=== PATIENT | female | born 1955 | race African-American/Black ===

== ENCOUNTER 2017-03-17 06:53 | Day surgery (SDC) | payer BC ==
[2017-03-17] MEDS ORDERED: TETRACAINE 0.5% OPHTH 1 DOSE AFFEYE ONE ×3 (07:00→09:00)
[2017-03-17] MEDS ORDERED: VIGAMOX 0.5% OPHTH 1 DOSE AFFEYE ONE ×5 (07:05→09:28)
[2017-03-17] MEDS ORDERED: PROLENSA OPHTH 1 DOSE AFFEYE ONE (07:16)
[2017-03-17] MEDS ORDERED: NS 500 ML IV 500 ML IV ONE (07:17)
[2017-03-17] MEDS ORDERED: ALPHAGAN-P OPHTH 1 DOSE AFFEYE ONE (07:17)
[2017-03-17] MEDS ORDERED: AK-DILATE 2.5% OPHTH 1 DOSE OP ONE ×3 (07:18→07:20)
[2017-03-17] MEDS ORDERED: CYCLOGYL 1% OPHTH 1 DOSE OP ONE ×3 (07:18→07:20)
[2017-03-17] MEDS ORDERED: MYDRIACIL OPHTH 1 DOSE AFFEYE ONE ×3 (07:18→07:20)
[2017-03-17] MEDS ORDERED: DUOVISC IO ONE ×2 (08:48→09:18)
[2017-03-17] MEDS ORDERED: XYLOCAINE-MPF 1% IJ ONE ×2 (08:48→09:18)
[2017-03-17] MEDS ORDERED: ADRENALINE CHL INJ IJ ONE ×2 (08:48→09:18)
[2017-03-17] MEDS ORDERED: BETADINE OPHTH SOLN 5% EACHEYE ONE ×2 (08:48→09:00)
[2017-03-17] MEDS ORDERED: BSS OPHTH (PLAIN) 500 ML with VANCOMYCIN HCL 500 MG VIAL 25 MG, ADRENALINE CHL INJ 1 MG IR ONE ×6 (08:56)
[2017-03-17 10:18] VITALS: BP 167/83
== END 2017-03-17 09:50 | disposition home or self-care (01) ==
LOC: SURG1 06:53
PROVIDERS: ATTEND Ophthalmology
PROC: 08RJ3JZ Replacement of Right Lens with Synthetic Substitute, Percutaneous Approach (ICD-10-PCS; principal; 2017-03-17 07:30)
PROC: 08DJ3ZZ Extraction of Right Lens, Percutaneous Approach (ICD-10-PCS; principal; 2017-03-17 07:30)
DX: H25.11 Age-related nuclear cataract, right eye (principal)
CPT/HCPCS: A4217; J0170; J3370

== ENCOUNTER 2017-03-31 08:01 | Day surgery (SDC) | payer BC ==
[~2017-03-31 08:01] MED LIST: TETRACAINE 0.5% OPHTH 1 DOSE AFFEYE ONE; VIGAMOX 0.5% OPHTH 1 DOSE AFFEYE ONE
[2017-03-31] MEDS ORDERED: VIGAMOX 0.5% OPHTH 1 DOSE AFFEYE ONE ×4 (08:06→11:14)
[2017-03-31] MEDS ORDERED: NS 500 ML IV 500 ML IV ONE (08:10)
[2017-03-31] MEDS ORDERED: PROLENSA OPHTH 1 DOSE AFFEYE ONE (08:12)
[2017-03-31] MEDS ORDERED: ALPHAGAN-P OPHTH 1 DOSE AFFEYE ONE (08:13)
[2017-03-31] MEDS ORDERED: AK-DILATE 2.5% OPHTH 1 DOSE OP ONE ×4 (08:14→08:17)
[2017-03-31] MEDS ORDERED: MYDRIACIL OPHTH 1 DOSE AFFEYE ONE ×4 (08:14→08:17)
[2017-03-31] MEDS ORDERED: CYCLOGYL 1% OPHTH 1 DOSE OP ONE ×4 (08:14→08:17)
[2017-03-31] MEDS ORDERED: TETRACAINE 0.5% OPHTH 1 DOSE AFFEYE ONE (10:46)
[2017-03-31] MEDS ORDERED: BETADINE OPHTH SOLN 5% EACHEYE ONE (10:47)
[2017-03-31] MEDS ORDERED: BSS OPHTH (PLAIN) 500 ML with VANCOMYCIN HCL 500 MG VIAL 25 MG, ADRENALINE CHL INJ 1 MG IR ONE ×3 (10:58)
[2017-03-31] MEDS ORDERED: DUOVISC IO ONE (10:58)
[2017-03-31] MEDS ORDERED: XYLOCAINE-MPF 1% IJ ONE (10:58)
[2017-03-31] MEDS ORDERED: ADRENALINE CHL INJ IJ ONE (10:58)
[2017-03-31 15:11] VITALS: BP 172/84
== END 2017-03-31 11:40 | disposition home or self-care (01) ==
LOC: SURG1 08:01
PROVIDERS: ATTEND Ophthalmology
PROC: 08DK3ZZ Extraction of Left Lens, Percutaneous Approach (ICD-10-PCS; principal; 2017-03-31 13:30)
PROC: 08RK3JZ Replacement of Left Lens with Synthetic Substitute, Percutaneous Approach (ICD-10-PCS; principal; 2017-03-31 13:30)
DX: H25.12 Age-related nuclear cataract, left eye (principal)
CPT/HCPCS: A4217; J0170; J3370

== ENCOUNTER → 2017-05-18 | Outpatient (CLI) | payer BC ==
--- NOTE | 2017-05-18 10:17 | RAD ---
HISTORY: Cervicalgia. Study: Three views of the cervical spine. Comparison: None. Findings: Normal cervical lordosis without obvious fracture or listhesis. Multilevel mild disc space narrowing with associated anterior disc osteophyte complexes, facet arthrosis, and uncovertebral hypertrophy. Congenital spinal canal narrowing. The dens is intact. The prevertebral soft tissues and lung apice s appear normal. IMPRESSION: Chronic findings as above. Reported By:
--- NOTE | 2017-05-18 12:12 | MG ---
HISTORY: SCREENING Comparison: May 07, 2015 and May 08, 2016 FINDINGS: Bilateral CC and MLO projections of the right and left breast were obtained. Scattered fibroglandul ar tissue is seen to be present without significant interval change. No suspicious architectural di stortion, mass or clustered microcalcifications can be observed to suggest malignancy. No skin thic kening or nipple retraction is appreciated. No pathological lymphadenopathy can be identified. Griffin ign-appearing calcifications are noted within the right and left breast. IMPRESSION: NO RADIOGRAPHIC EVIDENCE OF MALIGNANCY. ACR CATEGORY 2 - benign findings. FOLLOW-UP EXAM 1 YEAR. Diagnostic CAD was utilized and reviewed. * 0 (ZERO) - ASSESSMENT INCOMPLETE; ADDITIONAL IMAGING IS NEEDED. * 1/1 (ONE) - NEGATIVE. * 2/II (TWO) - BENIGN FINDINGS. * 3/III (THREE) - PROBABLY BENIGN FINDING; SHORT INTERVAL FOLLOW-UP SUGGESTED. * 4/IV (FOUR) - SUSPICIOUS ABNORMALITY; BIOPSY SHOULD BE CONSIDERED. * 5/V (FIVE) - HIGHLY SUSPICIOUS OF MALIGNANCY; BIOPSY SHOULD BE PERFORMED. A NEGATIVE X-RAY REPORT SHOULD NOT DELAY BIOPSY IF A DOMINANT OR CLINICALLY SUSPICIOUS MASS IS PRESENT; 4 TO 8 PERCENT OF CANCERS ARE NOT IDENTIFIED BY X-RAY. A NEG ATIVE REPORT MAY REINFORCE THE CLINICAL IMPRESSION. ADENOSIS AND DENSE BREASTS MAY OBSCURE AN UNDER LYING NEOPLASM. Reported By:
== END ==
LOC: RAD 08:28
PROVIDERS: ATTEND Nurse Practitioner Family
DX: Z12.31 Encounter for screening mammogram for malignant neoplasm of breast (principal); M54.2 Cervicalgia
CPT/HCPCS: 72040; 77067

== ENCOUNTER 2019-02-26 05:55 | Inpatient (IN) ==
[2019-02-26 06:14] VITALS: BMI 29.8
--- NOTE | 2019-02-26 06:15 | DR.WEAKNES ---
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 States she took her Lisinopril for her blood pressure and her diabetic medicines. She denies headache, dizziness, cold, cough, fever or chills. States she is not weak but has problems with her balance when she walks. States she has not had any falls and she has not been dropping things. She is a patient of Tricia Bailey. She denies alcohol or tobacco usage. She denies dysuria, hemauria, diarrhea or constipation. States her blood pressure and sugar has been elevated today. She denies any previous strokes. Chief Complaint:: STATES THAT LAST PM AROUND 2200 SHE WAS SITTING IN THE FRONT ROOM WHEN SHE STARTED FEELING NUMB ON HER RIGHT SIDE FROM HER FACE DOWN TO HER FEET. STATES SHE JUST GOT FINISHED EATING PORK SKINS. Self Treatment fo Chief Complaint: LISINOPRIL 40MG. GLYBURIDE 2.5MG - Reviewed Nurses Notes Reviewed: Yes - Source History Provided: Patient, Significant Other - Mode of Arrival Mode of Arrival: Wheelchair - Timing Onset of Chief Complaint: 02/26/19 Since onset, symptoms are:: Unchanged Symptom Onset: Known Onset of Symptoms Start Date: 02/26/19 Onset of Symptoms Start Time: 22:00 - Duration Duration: Constant Duration: Hours - Context Onset: Spontaneous, At rest Symptoms: Numbness, Difficulty walking History of: None Stroke Symptoms: Numbness of limbs - Location Weakness Location: Right, Arm, Leg - Associated Signs and Symptoms Associated Signs and Symptoms: None PMH - PMH Past Medical History: Yes Past Medical History: Arthritis, Diabetes, GERD, Hypertension Past Surgical History: No Surgical History: No History - Family History History of Family Medical Conditions: Yes Family Medical History: Diabetes Mellitus, Cancer, Coronary Artery Disease, Hypertension - Social History Does any household member use tobacco: No Alcohol Use: None Do you use any recreational Drugs:: No Lives With: Spouse Lives Where: Home - infectious screening In the last 2 months have you had wt loss of >10#?: NO Have you had fever, night sweats or hemotysis?: No Have you traveled outside the country in the last 6 months?: No Isolation: Standard ROS - Review of Systems Constitutional: No Symptoms Reported. negative: See HPI, Chills, Diaphoresis, Fever, Malaise, Weakness, Irritable, Fatigue, Loss of Appetite, Other Eyes: No Symptoms Reported. negative: See HPI, Eye Pain, Blurred Vision, Tearing, Discharge, Photophobia, Diplopia, Other ENTM: No Symptoms Reported Respiratoy: No Symptoms Reported. negative: See HPI, Productive Cough, Non- Productive Cough, Moist Cough, Dry Cough, Hacking Cough, Barking Cough, Brassy Cough, Orthopnea, Short of Breath, Stridor, Wheezing, Hemoptysis, Other Cardiovascular: No Symptoms Reported. negative: See HPI, Chest Pain, Edema, Palpitations, Syncope, Cyanosis, Skin Mottling, Other Gastrointestinal/Abdominal: No Symptoms Reported Genitourinary: No Symptoms Reported Neurological: No Symptoms Reported, Numbness, Problems Walking Musculoskeletal: No Symptoms Reported Integumentary: No Symptoms Reported Hematologic/Lymphatic: No Symptoms Reported Endocrine: No Symptoms Reported Psychiatric: No Symptoms Reported. negative: See HPI, Anxiety, Depression, Hallucinations, Excessive crying, Suicidal, Other PE - General Limitations: No Limitations General Appearance: Alert, In Distress (mild) - Head Head Exam: Normal Inspection, Atraumatic, Normocephalic Head Exam Physical: negative: Laceration, Abrasion, Contusion, Hematoma, Raccoon Eyes, Salcedo's Sign, Tenderness of Temporal Artery, CSF Rhinorrhea, CSF Otorrhea, Other - Eyes Eye exam: Normal Appearance, PERRL, EOMI. negative: Scleral Icterus, Conjunctival Injection, Nystagmus, Miosis, Mydrasis, Periorbital Swelling, Periorbital Tenderness, Other Eyelids: Normal Inspection: Bilateral Pupils: Regular, Round: Bilateral, Reactive: Bilateral Sclera/Conjunctival: Normal Inspection: Bilateral Anterior Chamber: Normal Inspection: Bilateral - ENT ENT Exam: Normal Exam, Normal Oropharynx, Normal External Ear Exam, Mucous Membranes Moist, TM's Normal Bilaterally Mouth Exam: Normal Inspection Throat Exam: Normal Inspection - Neck Neck Exam: Normal Inspection, Full ROM, Trachea Midline - Chest Chest Inspection: Normal Inspection - Respiratory Respiratory Exam: Normal Lung Sounds Bilat Respiratory Exam: Bilateral Clear to Auscultation - Cardiovascular Cardiovascular Exam: Regular Rate, Normal Rhythm, Normal Heart Sounds - Abdominal Exam Abdominal Exam: Normal Inspection, Normal Bowel Sounds, Soft. negative: Distention, Tenderness, Guarding, Rebound, Rigidity, Dimnished Bowel Sounds, Hyperactive Bowel Sounds, Hypoactive Bowel Sounds, Organomegaly, Trauma, Incision, Ascites, Mass, Bruit, Pulsatile Mass, Hernia, Other Abdominal Tenderness: negative: RUQ, RLQ, LUQ, LLQ, Epigastrium, Suprapubic, Diffuse, Mild, Moderate, Severe, Other - Extremities Extremities Exam: Normal Inspection, Full ROM, Normal Capillary Refill. negative: Tenderness, Edema, Joint Swelling, Calf Tenderness, Other - Back Back Exam: Normal Inspection, Full ROM. negative: Tenderness, (R) CVA Tenderness, (L) CVA Tenderness, Muscle Spasm, Paraspinal Tenderness, Vertebral Tenderness, Rashes, (R) Sciatic Notch Tenderness, (L) Sciatic Notch Tendern, (R) Straight Leg Raise, (L) Straight Leg Raise, Other - Neurologic Neurological Exam: Alert, Oriented X3, CN II-XII Intact, Reflexes Normal. negative: Normal Gait (gait not tested) Patient Oriented To: Person, Place, Time Speech: Fluid Speech Cranial Nerve Exam: EOM Function (II, III, IV, ): Normal, Facial Sensation (V): Normal, Facial Palsy (VII): Normal, Gag reflex (XI): Normal, Spinal Accessory Function (XI): Normal, Tongue Deviation: Right Abnormal (tongue deviates slightly to the right) Cerebellar Function: Finger to Nose: Normal Motor Strength - LUE: 5/5 Motor Strength - RUE: 3/5 Motor Strength - LLE: 5/5 Motor Strength - RLE: 3/5 Upper Motor Neuron Exam: Babinski Sign: Normal Sensory Exam Upper Extremity: Light Touch: Normal, 2 Point Discrimination: Normal Sensory Exam Lower Extremity: Light Touch: Normal, 2 Point Discrimination: Normal DTR: bicep (L): 2+, bicep (R): 2+, Patellar (L): 2+, patellar (R): 2+, tricep (L): 1+, tricep (R): 1+ - Psychiatric Psychiatric Exam: Normal Affect, Normal Mood. negative: Depressed, Agitated, Anxious, Flat Affect, Manic, Homicidal Ideation, Suicidal Ideation, Other - Skin Skin Exam: Warm, Dry, Intact, Normal Color - Vital Signs Vitals: Temperature 98.4 F Pulse Rate [Apical] 61 Pulse Rate 63 Respiratory Rate 19 Blood Pressure [Left Arm] 209/96 Blood Pressure 216/99 O2 Sat by Pulse Oximetry 99 Course - Reevaluation 1st: Improved - Consultation Called: 08:17 Call Returned: 08:17 (Dr. Hardwick to admit) - Education/Counseling Education/Counseling: Patient, Family Educated On: Treatment, Diagnosis, Needs for Follow Up ROR - Labs Reviewed Laboratory Results Reviewed?: Yes Result Diagrams: 02/26/19 06:09 02/26/19 06:09 - XRAY XRAY Interpreted by: Radiologist (CT head: No acuate intracranial process can be identified) - EKG Rate: 58 [place]: Normal Rhythm: NSR Block: None Hypertrophy: None ST: Old, Ant, Infarct - Labs Reviewed Laboratory: WBC 6.7 X10^3/uL (3.6-10.0) 02/26/19 06:09 RBC 5.13 X10^6/uL (3.5-5.4) 02/26/19 06:09 Hgb 13.9 g/dL (12.0-16.0) 02/26/19 06:09 Hct 41.6 % (36.0-47.0) 02/26/19 06:09 MCV 81.0 fL (80.0-100.0) 02/26/19 06:09 MCH 27.1 pg (27.0-34.0) 02/26/19 06:09 MCHC 33.5 g/dL (33.0-35.0) 02/26/19 06:09 RDW 15.0 % (11.6-16.5) 02/26/19 06:09 Plt Count 306 X10^3/uL (150.0-450.0) 02/26/19 06:09 MPV 8.2 fL (7.4-11.0) 02/26/19 06:09 Neut % (Auto) 59.0 % (42.0-75.0) 02/26/19 06:09 Lymph % (Auto) 32.3 % (21.0-51.0) 02/26/19 06:09 [place] % (Auto) 6.2 % (0.0-13.0) 02/26/19 06:09 Eos % (Auto) 1.7 % (0.9-2.9) 02/26/19 06:09 Baso % (Auto) 0.8 % (0.2-1.0) 02/26/19 06:09 Neut # (Auto) 3.9 x10^3/uL (2.2-4.8) 02/26/19 06:09 Lymph # (Auto) 2.2 X10^3/uL (1.3-2.9) 02/26/19 06:09 [place] # (Auto) 0.4 x10^3/uL (0.3-0.8) 02/26/19 06:09 Eos # (Auto) 0.1 x10^3/uL (0.0-0.2) 02/26/19 06:09 Baso # (Auto) 0.1 X10^3/uL (0.0-0.1) 02/26/19 06:09 Absolute Nucleated RBC 0.1 /100WBC 02/26/19 06:09 INR Target Range - 02/26/19 06:09 INR 0.92 (0.8-1.3) 02/26/19 06:09 APTT 27.0 SECONDS (22.9-36.5) 02/26/19 06:09 PTT Comment - 02/26/19 06:09 Sodium 141 mmol/L (136-145) 02/26/19 06:09 Corrected Sodium 144 mmol/L (136-145) 02/26/19 06:09 Potassium 3.6 mmol/L (3.5-5.1) 02/26/19 06:09 Chloride 104 mmol/L (98-107) 02/26/19 06:09 Carbon Dioxide 27.3 mmol/L (21-32) 02/26/19 06:09 BUN 20 mg/dL (7-18) H 02/26/19 06:09 Creatinine 0.91 mg/dL (0.55-1.02) 02/26/19 06:09 Est GFR (MDRD) Af Amer > 60 (>60) 02/26/19 06:09 Est GFR (MDRD) Non-Af > 60 (>60) 02/26/19 06:09 Glucose 211 mg/dL (65-99) H 02/26/19 06:09 Calcium 9.3 mg/dL (8.5-10.1) 02/26/19 06:09 Corrected Calcium 9.9 mg/dL (8.5-10.1) 02/26/19 06:09 Magnesium 1.9 mg/dL (1.7-2.9) 02/26/19 06:09 Total Bilirubin 0.20 mg/dL (0.2-1.0) 02/26/19 06:09 AST 14 Units/L (15-37) L 02/26/19 06:09 ALT 17 Units/L (12-78) 02/26/19 06:09 Alkaline Phosphatase 79 Units/L (46-116) 02/26/19 06:09 Creatine Kinase 83 Units/L (26-192) 02/26/19 06:09 CK-MB (CK-2) 1.2 ng/mL (0-4.0) 02/26/19 06:09 CK/CKMB % Calc 1.5 % (<4) 02/26/19 06:09 Troponin I 0.02 ng/mL (0-1.5) 02/26/19 06:09 Total Protein 8.1 g/dL (6.4-8.2) 02/26/19 06:09 Albumin 3.3 g/dL (3.4-5.0) L 02/26/19 06:09 Globulin 4.8 g/dL (2.5-4.5) H 02/26/19 06:09 Albumin/Globulin Ratio 0.7 Ratio (1.1-2.1) L 02/26/19 06:09 Specimen Type Clean catch urine 02/26/19 06:45 Urine Color Yellow (YELLOW) 02/26/19 06:45 Urine Appearance Cloudy (CLEAR) 02/26/19 06:45 Urine pH 7.0 (5.0 - 8.0) 02/26/19 06:45 Ur Specific [place] 1.010 (1.000-1.030) 02/26/19 06:45 Urine Protein 1+ (NEGATIVE) 02/26/19 06:45 Urine Glucose (UA) 3+ (NEGATIVE) 02/26/19 06:45 Urine Ketones 1+ (NEGATIVE) 02/26/19 06:45 Urine Occult Blood 1+ (NEGATIVE) 02/26/19 06:45 Urine Nitrite Negative (NEGATIVE) 02/26/19 06:45 Urine Bilirubin Negative (NEGATIVE) 02/26/19 06:45 Urine Urobilinogen Normal (NORMAL) 02/26/19 06:45 Ur Leukocyte Esterase 2+ (NEGATIVE) 02/26/19 06:45 Urine RBC 0-2 /HPF (NONE SEEN) 02/26/19 06:45 Urine WBC 0-2 /HPF (NONE SEEN) 02/26/19 06:45 Ur Squamous Epith Cells Moderate /HPF (NEGATIVE) 02/26/19 06:45 Amorphous Sediment 3+ /HPF (NEGATIVE) 02/26/19 06:45 Urine Bacteria Negative /HPF (NEGATIVE) 02/26/19 06:45 Ur Culture Indicated? No/not indicated 02/26/19 06:45 - Diagnosis Discharge Problem: Acute alteration in mental status, Paresthesia of right upper and lower extremity, Accelerated hypertension Diabetes mellitus Qualifiers: Diabetes mellitus type: type 2 - Discharge Plan Disposition: ADMITTED INPATIENT Condition: Stable - Follow ups/Referrals Follow ups/Referrals: BEN HARDWICK [Primary Care Provider] - 3 days - Instructions
[2019-02-26] MEDS ORDERED: CATAPRES TAB 0.2 MG PO ONE (06:17)
[2019-02-26] MEDS ORDERED: CATAPRES TAB 0.2 MG ONE (06:18)
[2019-02-26 06:38] LABS: BASOPHILS # (AUTO) 0.1 X10^3/uL (0.0-0.1); BASOPHILS % (AUTO) 0.8 % (0.2-1.0); EOSINOPHILS # (AUTO) 0.1 x10^3/uL (0.0-0.2); EOSINOPHILS % (AUTO) 1.7 % (0.9-2.9); HEMATOCRIT 41.6 % (36.0-47.0); HEMOGLOBIN 13.9 g/dL (12.0-16.0); LYMPHOCYTES # (AUTO) 2.2 X10^3/uL (1.3-2.9); LYMPHOCYTES % (AUTO) 32.3 % (21.0-51.0); MEAN CORPUSCULAR HEMOGLOBIN 27.1 pg (27.0-34.0); MEAN CORPUSCULAR HGB CONC 33.5 g/dL (33.0-35.0); MEAN PLATELET VOLUME 8.2 fL (7.4-11.0); MONOCYTES # (AUTO) 0.4 x10^3/uL (0.3-0.8); MONOCYTES % (AUTO) 6.2 % (0.0-13.0); NEUTROPHILS # (AUTO) 3.9 x10^3/uL (2.2-4.8); PLATELET COUNT 306 X10^3/uL (150.0-450.0); RED BLOOD COUNT 5.13 X10^6/uL (3.5-5.4); WHITE BLOOD COUNT 6.7 X10^3/uL (3.6-10.0)
[2019-02-26 06:48] LABS: BLOOD UREA NITROGEN 20 mg/dL (7-18); CALCIUM 9.3 mg/dL (8.5-10.1); CARBON DIOXIDE 27.3 mmol/L (21-32); CHLORIDE 104 mmol/L (98-107); COR NA(FOR HYPERGLY) 144 mmol/L (136-145); CREATININE 0.91 mg/dL (0.55-1.02); SODIUM 141 mmol/L (136-145); TROPONIN I 0.02 ng/mL (0-1.5); eGFR NON BLACK RACES > 60 (>60)
[2019-02-26 06:52] LABS: ALANINE AMINOTRANSFERASE 17 Units/L (12-78); ALBUMIN 3.3 g/dL (3.4-5.0); ALKALINE PHOSPHATASE 79 Units/L (46-116); CKMB % 1.5 % (<4); COR CA(FOR HYPOALB) 9.9 mg/dL (8.5-10.1); CREATINE KINASE 83 Units/L (26-192); CREATINE KINASE MB 1.2 ng/mL (0-4.0); MAGNESIUM 1.9 mg/dL (1.7-2.9); TOTAL PROTEIN 8.1 g/dL (6.4-8.2)
[2019-02-26 06:56] LABS: ASPARTATE AMINO TRANSFERASE 14 Units/L (15-37)
--- NOTE | 2019-02-26 07:04 | CT ---
HISTORY: Right arm and leg weakness Study: CT brain without contrast Comparison: None Technique: Multiple axial images of the brain were obtained from the skull base to the vertex without administration of IV contrast. Findings: No acute intraparenchymal hemorrhage or mass can be identified. No extra-axial fluid collections are seen. No alteration in the attenuation of the brain parenchyma can be identified to suggest acute or subacute ischemic change. The ventricular system is symmetric and nondilated. The extracranial structures are grossly unremarkable. IMPRESSION: 1. No acute intracranial process can be identified. Reported By:
[2019-02-26 07:05] LABS: BILIRUBIN,URINE NEGATIVE (NEGATIVE); BLOOD/HEMOGLOBIN,URINE 1+ (NEGATIVE); GLUCOSE, URINE 3+ (NEGATIVE); KETONES,URINE 1+ (NEGATIVE); LEUKOCYTE ESTERASE ,URINE 2+ (NEGATIVE); NITRITES,URINE NEGATIVE (NEGATIVE); PROTEIN,URINE 1+ (NEGATIVE); UROBILINOGEN,URINE NORMAL (NORMAL)
--- NOTE | 2019-02-26 07:06 | RAD ---
Examination: AP chest History: Chest pain Comparison 07/30/2016 Findings: Continued normal heart size with essentially clear lungs and pleural spaces. Diffuse interstitial prominence is nonspecific. No consolidation, or pneumothorax or large pleural effusion. Impression: No active disease demonstrated. Reported By:
[2019-02-26 07:08] LABS: APPEARANCE,URINE CLOUDY (CLEAR); COLOR,URINE YELLOW (YELLOW)
[2019-02-26 07:40] LABS: AMORPHOUS SEDIMENT,UR 3+ /HPF (NEGATIVE); BACTERIA,URINE NEGATIVE /HPF (NEGATIVE); RBC,URINE 0-2 /HPF (NONE SEEN); SQUAMOUS EPITHELIAL CELL,UR MODERATE /HPF (NEGATIVE)
[2019-02-26] MEDS ORDERED: HumuLIN R SC PRN (08:26)
[2019-02-26 08:50] LABS: CHOL/HDL RATIO 3.5 (0.0-5.0)
[2019-02-26] MEDS ORDERED: NS 1/2 1000 ML IV 1,000 ML ONE (09:34)
[2019-02-26] MEDS: ZESTRIL TAB 40 MG PO SCH (09:49)
[2019-02-26] MEDS: DIABETA PO SCH ×2 (09:49→20:43)
[2019-02-26] MEDS ORDERED: POTASSIUM CHL 60 MEQ/NS 0.45% 500 ML IV PRN (10:02)
[2019-02-26] MEDS ORDERED: MICRO K EXTEN CAP 10 MEQ PO PRN (10:02)
[2019-02-26] MEDS ORDERED: K-RIDER 10 MEQ/NS 100 ML 10 MEQ/100 ML BAG IV PRN (10:02)
[2019-02-26] MEDS ORDERED: POTASSIUM CHLORIDE LIQ 20 MEQ UDC PO PRN (10:02)
[2019-02-26] MEDS ORDERED: POTASSIUM CHL 40 MEQ/NS 0.45% 500 ML IV PRN (10:02)
[2019-02-26] MEDS ORDERED: KLOR-CON PO PRN (10:02)
[2019-02-26] MEDS: MAGNESIUM SULFATE 1 GRAM/100 mL PREMIX 1 GM/100 ML BAG IV PRN ×2 (10:33→11:42)
[2019-02-26] MEDS: NS 1/2 1000 ML IV 1,000 ML IV SCH (10:37)
[2019-02-26] MEDS: HumuLIN R SC SCH ×4 (11:43→20:57)
[2019-02-26] MEDS: K-DUR TAB 20 MEQ PO PRN (20:43)
[2019-02-26] MEDS: SNACK - Diabetic Appropriate PO SCH (20:49)
[2019-02-27 05:00] LABS: BASOPHILS % (AUTO) 0.5 % (0.2-1.0); EOSINOPHILS # (AUTO) 0.1 x10^3/uL (0.0-0.2); EOSINOPHILS % (AUTO) 2.5 % (0.9-2.9); HEMATOCRIT 39.4 % (36.0-47.0); LYMPHOCYTES # (AUTO) 2.4 X10^3/uL (1.3-2.9); LYMPHOCYTES % (AUTO) 45.9 % (21.0-51.0); MEAN CORPUSCULAR HEMOGLOBIN 26.8 pg (27.0-34.0); MEAN CORPUSCULAR HGB CONC 33.1 g/dL (33.0-35.0); MEAN CORPUSCULAR VOLUME 81.1 fL (80.0-100.0); MONOCYTES # (AUTO) 0.3 x10^3/uL (0.3-0.8); MONOCYTES % (AUTO) 6.1 % (0.0-13.0); NEUTROPHILS # (AUTO) 2.4 x10^3/uL (2.2-4.8); PLATELET COUNT 297 X10^3/uL (150.0-450.0); RED BLOOD COUNT 4.85 X10^6/uL (3.5-5.4); RED CELL DISTRIBUTION WIDTH 14.6 % (11.6-16.5); WHITE BLOOD COUNT 5.3 X10^3/uL (3.6-10.0)
[2019-02-27 05:16] LABS: ALANINE AMINOTRANSFERASE 15 Units/L (12-78); ALBUMIN 2.8 g/dL (3.4-5.0); ALKALINE PHOSPHATASE 67 Units/L (46-116); ASPARTATE AMINO TRANSFERASE 12 Units/L (15-37); BLOOD UREA NITROGEN 10 mg/dL (7-18); CARBON DIOXIDE 26.8 mmol/L (21-32); CHLORIDE 108 mmol/L (98-107); COR NA(FOR HYPERGLY) 145 mmol/L (136-145); CREATININE 0.75 mg/dL (0.55-1.02); SODIUM 143 mmol/L (136-145); eGFR NON BLACK RACES > 60 (>60)
[2019-02-27] MEDS: HumuLIN R SC SCH ×4 (05:40→20:54)
[2019-02-27] MEDS: K-DUR TAB 20 MEQ PO PRN (08:16)
[2019-02-27] MEDS: DIABETA PO SCH ×2 (08:17→20:53)
[2019-02-27] MEDS: MAGNESIUM SULFATE 1 GRAM/100 mL PREMIX 1 GM/100 ML BAG IV PRN (08:17)
[2019-02-27] MEDS: ZESTRIL TAB 40 MG PO SCH (08:17)
[2019-02-27] MEDS: NS 1/2 1000 ML IV 1,000 ML IV SCH ×2 (15:05→20:54)
[2019-02-27] MEDS ORDERED: NS 1/2 1000 ML IV 1,000 ML ONE (20:35)
[2019-02-27] MEDS: SNACK - Diabetic Appropriate PO SCH (20:54)
[2019-02-27] MEDS: COMBIGAN EYE DROPS EACHEYE SCH (21:55)
[2019-02-28 05:27] LABS: BASOPHILS % (AUTO) 0.6 % (0.2-1.0); EOSINOPHILS # (AUTO) 0.1 x10^3/uL (0.0-0.2); EOSINOPHILS % (AUTO) 2.7 % (0.9-2.9); HEMATOCRIT 39.5 % (36.0-47.0); HEMOGLOBIN 13.2 g/dL (12.0-16.0); LYMPHOCYTES # (AUTO) 2.1 X10^3/uL (1.3-2.9); LYMPHOCYTES % (AUTO) 45.7 % (21.0-51.0); MEAN CORPUSCULAR HEMOGLOBIN 27.1 pg (27.0-34.0); MEAN CORPUSCULAR HGB CONC 33.3 g/dL (33.0-35.0); MEAN CORPUSCULAR VOLUME 81.3 fL (80.0-100.0); MONOCYTES # (AUTO) 0.3 x10^3/uL (0.3-0.8); MONOCYTES % (AUTO) 5.6 % (0.0-13.0); NEUTROPHILS # (AUTO) 2.1 x10^3/uL (2.2-4.8); NEUTROPHILS % (AUTO) 45.4 % (42.0-75.0); PLATELET COUNT 302 X10^3/uL (150.0-450.0); RED BLOOD COUNT 4.87 X10^6/uL (3.5-5.4); RED CELL DISTRIBUTION WIDTH 14.3 % (11.6-16.5); WHITE BLOOD COUNT 4.6 X10^3/uL (3.6-10.0)
[2019-02-28 05:44] LABS: ALANINE AMINOTRANSFERASE 14 Units/L (12-78); ALBUMIN 2.8 g/dL (3.4-5.0); ALKALINE PHOSPHATASE 68 Units/L (46-116); ASPARTATE AMINO TRANSFERASE 13 Units/L (15-37); BLOOD UREA NITROGEN 8 mg/dL (7-18); CALCIUM 8.8 mg/dL (8.5-10.1); CARBON DIOXIDE 27.5 mmol/L (21-32); CHLORIDE 107 mmol/L (98-107); COR CA(FOR HYPOALB) 9.8 mg/dL (8.5-10.1); COR NA(FOR HYPERGLY) 144 mmol/L (136-145); CREATININE 0.85 mg/dL (0.55-1.02); SODIUM 143 mmol/L (136-145); TOTAL PROTEIN 7.2 g/dL (6.4-8.2); eGFR NON BLACK RACES > 60 (>60)
[2019-02-28] MEDS: HumuLIN R SC SCH ×4 (06:08→20:20)
[2019-02-28] MEDS: ZESTRIL TAB 40 MG PO SCH (09:34)
[2019-02-28] MEDS: DIABETA PO SCH ×2 (09:35→20:13)
[2019-02-28] MEDS: NS 1/2 1000 ML IV 1,000 ML IV SCH (09:36)
[2019-02-28] MEDS: COMBIGAN EYE DROPS EACHEYE SCH ×2 (09:36→20:13)
--- NOTE | 2019-02-28 13:31 | DR.H&P ---
H&P - History & Physical for Day of: H&P Date: 02/28/19 - Chief Complaint Chief Complaint: 63 BF ADMITTED ON 02/26 WITH RIGHT SIDE WEAKNESS TO UPPER EXTREMITY AND CO RIGHT SIDED FACIAL NUMBNESS. PT HAD CT HEAD ON ADMISSION WITHOUT ACUTE FINDINGS. PT HAD PT/OT EVALUATION. PT HAD MRI/MRA OF BRAIN ORDERED FOR THIS AM AND CTA CAROTIDS, WILL ADD MRI C SPINE DUE TO HX OF C SPINE DDD WITH RADICULOPATHY. PT IS ON BP CONTROL AND HAD SERIAL CE AND EKG WHICH WERE STABLE - Past Medical History Past Medical History: Arthritis, Diabetes, GERD, Hypertension - Past Surgical History Surgical History: No History - Family History Family Medical History: Diabetes Mellitus, Cancer, Hypertension - Social History Does patient currently use any type of tobacco product: No Have you used tobacco products in the last 12 months: No Type of Tobacco Use: None Does any household member use tobacco: No Alcohol Use: None - Medications Home Medications: No Known Drug Allergies Allergy (Verified 02/26/19 09:40) CONTINUE taking the following medications brimonidine-timolol 1 drp OPHTHALMIC (EYE) TID 02/26/19 [History] glyburide 2.5 mg PO BID 02/26/19 [History] latanoprost 1 drp OPHTHALMIC (EYE) HS 02/26/19 [History] lisinopril 40 mg PO QDAY 02/26/19 [History] - Physical Exam Vital Signs: Temperature 98.4 F Pulse Rate [Apical] 67 Pulse Rate 63 Respiratory Rate 18 Blood Pressure [Right Arm] 186/76 Blood Pressure [Left Arm] 209/96 Blood Pressure 216/99 O2 Sat by Pulse Oximetry 99 - Allergies Allergies/Adverse Reactions: Allergies Allergy/AdvReac Type Severity Reaction Status Date / Time No Known Drug Allergies Allergy Verified 02/26/19 09:40
--- NOTE | 2019-02-28 13:34 | PCM.PROG ---
Progress Note - Progress Note for Day of Date of Exam: 02/28/19 - Subjective Subjective: 63 BF ADMITTED ON 02/26 WITH RIGHT SIDE WEAKNESS TO UPPER EXTREMITY AND CO RIGHT SIDED FACIAL NUMBNESS. PT HAD CT HEAD ON ADMISSION WITHOUT ACUTE FINDINGS. PT HAD PT/OT EVALUATION. PT HAD MRI/MRA OF BRAIN ORDERED FOR THIS AM AND CTA CAROTIDS, WILL ADD MRI C SPINE DUE TO HX OF C SPINE DDD WITH R ADICULOPATHY. PT IS ON BP CONTROL AND HAD CE AND EKG WHICH WERE STABLE - Past Medical Family Social History Allergies: Allergies No Known Drug Allergies Allergy (Verified 02/26/19 09:40) - Review of Systems ROS: No change since H&P - Vital Signs and I&O's Vital Signs: Temperature 98.4 F Pulse Rate [Apical] 67 Pulse Rate 63 Respiratory Rate 18 Blood Pressure [Right Arm] 186/76 Blood Pressure [Left Arm] 209/96 Blood Pressure 216/99 O2 Sat by Pulse Oximetry 99 Intake and Output: Intake & Output 02/26/19 02/27/19 02/28/19 03/01/19 11:59 11:59 11:59 11:59 Intake Total 1081 / 1081 1130 / 1130 Balance 1081 / 1081 1130 / 1130 - Physical Exam Oriented: Normal Eyes: Normal Ear: Normal Nose: Normal Throat: Normal Respiratory: Normal Cardiovascular: Normal Auscultation: Bowel Sounds: Normal Tenderness: Normal Skin: Normal Musculoskeletal: Right, Arm, Sensory Deficit Psychiatric: Anxiety Mood Description: Anxious Affect: Anxious Speech Pattern: Clear, Appropriate - Laboratory and Diagnostics Result Diagrams: 02/28/19 04:46 02/28/19 04:46 Labs: Laboratory WBC 4.6 X10^3/uL (3.6-10.0) 02/28/19 04:46 RBC 4.87 X10^6/uL (3.5-5.4) 02/28/19 04:46 Hgb 13.2 g/dL (12.0-16.0) 02/28/19 04:46 Hct 39.5 % (36.0-47.0) 02/28/19 04:46 MCV 81.3 fL (80.0-100.0) 02/28/19 04:46 MCH 27.1 pg (27.0-34.0) 02/28/19 04:46 MCHC 33.3 g/dL (33.0-35.0) 02/28/19 04:46 RDW 14.3 % (11.6-16.5) 02/28/19 04:46 Plt Count 302 X10^3/uL (150.0-450.0) 02/28/19 04:46 MPV 8.0 fL (7.4-11.0) 02/28/19 04:46 Neut % (Auto) 45.4 % (42.0-75.0) 02/28/19 04:46 Lymph % (Auto) 45.7 % (21.0-51.0) 02/28/19 04:46 [place] % (Auto) 5.6 % (0.0-13.0) 02/28/19 04:46 Eos % (Auto) 2.7 % (0.9-2.9) 02/28/19 04:46 Baso % (Auto) 0.6 % (0.2-1.0) 02/28/19 04:46 Neut # (Auto) 2.1 x10^3/uL (2.2-4.8) L 02/28/19 04:46 Lymph # (Auto) 2.1 X10^3/uL (1.3-2.9) 02/28/19 04:46 [place] # (Auto) 0.3 x10^3/uL (0.3-0.8) 02/28/19 04:46 Eos # (Auto) 0.1 x10^3/uL (0.0-0.2) 02/28/19 04:46 Baso # (Auto) 0.0 X10^3/uL (0.0-0.1) 02/28/19 04:46 Absolute Nucleated RBC 0.1 /100WBC 02/28/19 04:46 INR Target Range - 02/26/19 06:09 INR 0.92 (0.8-1.3) 02/26/19 06:09 APTT 27.0 SECONDS (22.9-36.5) 02/26/19 06:09 PTT Comment - 02/26/19 06:09 Fibrinogen 483 mg/dL (239-489) 02/26/19 06:09 Sodium 143 mmol/L (136-145) 02/28/19 04:46 Corrected Sodium 144 mmol/L (136-145) 02/28/19 04:46 Potassium 3.5 mmol/L (3.5-5.1) 02/28/19 04:46 Chloride 107 mmol/L (98-107) 02/28/19 04:46 Carbon Dioxide 27.5 mmol/L (21-32) 02/28/19 04:46 BUN 8 mg/dL (7-18) 02/28/19 04:46 Creatinine 0.85 mg/dL (0.55-1.02) 02/28/19 04:46 Est GFR (MDRD) Af Amer > 60 (>60) 02/28/19 04:46 Est GFR (MDRD) Non-Af > 60 (>60) 02/28/19 04:46 Glucose 152 mg/dL (65-99) H 02/28/19 04:46 POC Glucose (mg/dL) 205 mg/dL (65-99) H 02/28/19 12:44 Hemoglobin A1c 9.4 % 02/28/19 04:46 Calcium 8.8 mg/dL (8.5-10.1) 02/28/19 04:46 Corrected Calcium 9.8 mg/dL (8.5-10.1) 02/28/19 04:46 Magnesium 1.9 mg/dL (1.7-2.9) 02/27/19 04:20 Total Bilirubin 0.20 mg/dL (0.2-1.0) 02/28/19 04:46 AST 13 Units/L (15-37) L 02/28/19 04:46 ALT 14 Units/L (12-78) 02/28/19 04:46 Alkaline Phosphatase 68 Units/L (46-116) 02/28/19 04:46 Creatine Kinase 83 Units/L (26-192) 02/26/19 06:09 CK-MB (CK-2) 1.2 ng/mL (0-4.0) 02/26/19 06:09 CK/CKMB % Calc 1.5 % (<4) 02/26/19 06:09 Troponin I 0.02 ng/mL (0-1.5) 02/26/19 06:09 Total Protein 7.2 g/dL (6.4-8.2) 02/28/19 04:46 Albumin 2.8 g/dL (3.4-5.0) L 02/28/19 04:46 Globulin 4.4 g/dL (2.5-4.5) 02/28/19 04:46 Albumin/Globulin Ratio 0.6 Ratio (1.1-2.1) L 02/28/19 04:46 Triglycerides 81 mg/dL (0-150) 02/26/19 06:09 Cholesterol 230 mg/dL (0-200) H 02/26/19 06:09 LDL Cholesterol, Calc 149 mg/dL (0-100) H 02/26/19 06:09 HDL Cholesterol 65 mg/dL (40-60) H 02/26/19 06:09 Cholesterol/HDL Ratio 3.5 (0.0-5.0) 02/26/19 06:09 Specimen Type Clean catch urine 02/26/19 06:45 Urine Color Yellow (YELLOW) 02/26/19 06:45 Urine Appearance Cloudy (CLEAR) 02/26/19 06:45 Urine pH 7.0 (5.0 - 8.0) 02/26/19 06:45 Ur Specific [place] 1.010 (1.000-1.030) 02/26/19 06:45 Urine Protein 1+ (NEGATIVE) 02/26/19 06:45 Urine Glucose (UA) 3+ (NEGATIVE) 02/26/19 06:45 Urine Ketones 1+ (NEGATIVE) 02/26/19 06:45 Urine Occult Blood 1+ (NEGATIVE) 02/26/19 06:45 Urine Nitrite Negative (NEGATIVE) 02/26/19 06:45 Urine Bilirubin Negative (NEGATIVE) 02/26/19 06:45 Urine Urobilinogen Normal (NORMAL) 02/26/19 06:45 Ur Leukocyte Esterase 2+ (NEGATIVE) 02/26/19 06:45 Urine RBC 0-2 /HPF (NONE SEEN) 02/26/19 06:45 Urine WBC 0-2 /HPF (NONE SEEN) 02/26/19 06:45 Ur Squamous Epith Cells Moderate /HPF (NEGATIVE) 02/26/19 06:45 Amorphous Sediment 3+ /HPF (NEGATIVE) 02/26/19 06:45 Urine Bacteria Negative /HPF (NEGATIVE) 02/26/19 06:45 Ur Culture Indicated? No/not indicated 02/26/19 06:45 - Plan (1) Paresthesia of right upper and lower extremity Status: Acute Plan: MRI/MRA BRAIN. CTA CAROTIDS, BP CONTROL. LIPID AND BS CONTROL. MRI C SPINE (2) Cervical spine degeneration Status: Acute (3) Accelerated hypertension Status: Acute (4) Diabetes mellitus Status: Acute Qualifiers: Diabetes mellitus type: type 2
--- NOTE | 2019-02-28 16:42 | MRI ---
MR brain without contrast Indication: Altered mental status. Right hemiparesis. Evaluate for stroke. Comparison: 02/26/2019 CT head. MRA brain from the same day and MR cervical spine reviewed Technique: Multiplanar multi sequence imaging through the brain without contrast Findings: There is acute infarct in the left basal ganglia/[place] radiata, possibly abutting or involving the left thalamus. This is seen on axial diffusion-weighted imaging 23 through 21, with low ADC signal and FLAIR signal abnormality. FLAIR imaging shows scattered periventricular white matter microangiopathic changes as well. No other infarcts identified. No acute intracranial hemorrhage, mass or mass effect seen. Pituitary gland is normal. There is no extra-axial fluid collection identified. Bone marrow signal is normal. Soft tissues of the face and upper neck show no unexpected abnormality. Gradient imaging shows no hemorrhage/old blood products. Orbits appear grossly normal. Vascular flow voids are normal on T2 weighted imaging. Impression: 1. 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 2. Mild atrophy and microangiopathy. Reported By:
--- NOTE | 2019-02-28 16:45 | MRI ---
MRA head without contrast Indication: Right hemiparesis. Altered mental status. Evaluate for infarction. Comparison: CT head from 02/26/2019 and MR brain from the same day Technique: Multiplanar multi sequence imaging through the brain without contrast. 3D [id number] images provided. Findings: Bilateral visualized vertebral arteries are normal. The basilar artery and posterior cerebral arteries appear normal. There is large posterior communicating arteries bilaterally, particularly on the right with type circulation anatomy variant noted. The bilateral middle cerebral arteries appear normal. Anterior cerebral arteries appear normal. Internal carotid arteries are normal. Impression: No definite evidence of arterial occlusion, severe stenosis, dissection or aneurysm. Posterior circulation is mostly supplied on the right via posterior communicating artery from the anterior circulation. Reported By:
--- NOTE | 2019-02-28 16:57 | MRI ---
MR cervical spine without contrast Indication: Cervical spine degenerative change and arm paresthesias. Comparison: 05/18/2017 radiograph. MR brain from the same day. Technique: Multiplanar multi sequence imaging through the cervical spine without contrast Findings: Bone marrow signal is normal. Vertebral body heights are normal. There is mid lower cervical spine disc degenerative change with disc bulges and spinal canal narrowing. Prevertebral soft tissues are normal. Spinal cord signal is normal. T2 signal abnormality or along the bilateral nerve roots C7-T1 are probably perineural cyst/Tarlov cysts. C2-C3: Minimal disc bulge without significant stenosis C3-C4: Circumferential disc bulge and disc osteophytes causes mild spinal canal narrowing. There is moderate right neural foramen narrowing. C4-C5: Circumferential disc bulge and posterior longitudinal ligament thickening with mild facet arthropathy. This causes moderate spinal canal narrowing with flattening of the spinal cord. There is moderate to severe left neural foramen narrowing, mostly due to facet arthropathy and moderate right neural foramen narrowing C5-C6: Circumferential disc bulge and posterior longitudinal ligament thickening/uncovertebral joint osteophytes causes mild spinal canal narrowing. There is moderate to severe left and mild right neural foramen narrowing C6-C7: Disc bulge and disc osteophytes, asymmetric to the left cause mild spinal canal narrowing. There is moderate to severe right and mild left neural foramen narrowing C7-T1: There is no high-grade stenosis. Upper thoracic spine is otherwise relatively normal with small disc bulge seen only on sagittal images at T2-T3. Partially visualized may angioma at T3 noted. Impression: 1. Multilevel spine disc degenerative change and facet arthropathy resulting in spinal canal narrowing, most pronounced at C4-C5. 2. Neural foraminal narrowing is noted, most notably on the left at C4-C5 and C5-C6, and on the right at C6-C7. Other levels as above. 3. 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 Reported By:
--- NOTE | 2019-02-28 18:05 | VAS ---
HISTORY: Concern for carotid artery stenosis. Right-sided numbness. Technique: Multiple modi scale and color flow Doppler images of the right and left carotid arterial system were obtained. The vertebral arterial system was evaluated as well. Findings: Nonocclusive color flow Doppler is seen throughout the right and left carotid arterial system. No hemodynamically significant carotid arterial stenosis is seen based on velocity criteria. There is [id number] atherosclerosis and plaque formation of the bilateral carotid bulbs and ICAs with associated intimal thickening but without evidence for high-grade stenosis (>70%) or occlusion of the carotid arteries. The left vertebral artery demonstrate antegrade flow. IMPRESSION: Elevated velocities in the right ICA in the 50-69% stenosis range. Elevated velocities in the right CCA and left CCA in the 50-69% stenosis range. [id number] atherosclerosis and plaque formation of the bilateral carotid bulbs and in both ICAs with associated carotid intimal thickening seen bilaterally. Appropriate, antegrade, left vertebral arterial flow. The right vertebral artery is not well seen on this exam. Peak right ICA velocity: 131 centimeter/seconds. Peak right CCA velocity: 186 centimeter/seconds. Peak left ICA velocity: 121 centimeter/seconds. Peak left CCA velocity: 137 centimeter/seconds. Right ICA to CCA ratio: 0.7. Left ICA to CCA ratio: 0.9. Reported By:
[2019-02-28] MEDS: PLAVIX PO SCH (18:20)
[2019-02-28] MEDS: ASPIRIN 81 MG CHEWTAB PO SCH (18:20)
[2019-02-28] MEDS: SNACK - Diabetic Appropriate PO SCH (20:12)
[2019-02-28] MEDS: CRESTOR TAB 10 MG PO SCH (20:13)
[2019-03-01 05:14] LABS: BASOPHILS % (AUTO) 0.3 % (0.2-1.0); EOSINOPHILS # (AUTO) 0.1 x10^3/uL (0.0-0.2); EOSINOPHILS % (AUTO) 2.8 % (0.9-2.9); HEMATOCRIT 42.6 % (36.0-47.0); LYMPHOCYTES % (AUTO) 41.5 % (21.0-51.0); MEAN CORPUSCULAR HEMOGLOBIN 26.9 pg (27.0-34.0); MEAN CORPUSCULAR HGB CONC 32.9 g/dL (33.0-35.0); MEAN CORPUSCULAR VOLUME 81.5 fL (80.0-100.0); MEAN PLATELET VOLUME 8.1 fL (7.4-11.0); MONOCYTES # (AUTO) 0.3 x10^3/uL (0.3-0.8); MONOCYTES % (AUTO) 6.5 % (0.0-13.0); NEUTROPHILS # (AUTO) 2.4 x10^3/uL (2.2-4.8); NEUTROPHILS % (AUTO) 48.9 % (42.0-75.0); PLATELET COUNT 331 X10^3/uL (150.0-450.0); RED BLOOD COUNT 5.22 X10^6/uL (3.5-5.4); RED CELL DISTRIBUTION WIDTH 14.6 % (11.6-16.5); WHITE BLOOD COUNT 4.9 X10^3/uL (3.6-10.0)
[2019-03-01 05:31] LABS: ALANINE AMINOTRANSFERASE 15 Units/L (12-78); ALBUMIN 3.1 g/dL (3.4-5.0); ALKALINE PHOSPHATASE 73 Units/L (46-116); ASPARTATE AMINO TRANSFERASE 15 Units/L (15-37); BLOOD UREA NITROGEN 10 mg/dL (7-18); CALCIUM 9.3 mg/dL (8.5-10.1); CARBON DIOXIDE 27.8 mmol/L (21-32); CHLORIDE 106 mmol/L (98-107); COR NA(FOR HYPERGLY) 144 mmol/L (136-145); CREATININE 0.83 mg/dL (0.55-1.02); SODIUM 143 mmol/L (136-145); TOTAL PROTEIN 7.7 g/dL (6.4-8.2); eGFR NON BLACK RACES > 60 (>60)
[2019-03-01] MEDS: HumuLIN R SC SCH ×4 (05:40→20:41)
[2019-03-01] MEDS: MAGNESIUM SULFATE 1 GRAM/100 mL PREMIX 1 GM/100 ML BAG IV PRN ×2 (06:04→09:03)
[2019-03-01] MEDS: K-DUR TAB 20 MEQ PO PRN (06:04)
[2019-03-01] MEDS ORDERED: NORVASC TAB 5 MG ONE (08:14)
[2019-03-01] MEDS: ZESTRIL TAB 40 MG PO SCH (09:00)
[2019-03-01] MEDS: ASPIRIN 81 MG CHEWTAB PO SCH (09:00)
[2019-03-01] MEDS: PLAVIX PO SCH (09:00)
[2019-03-01] MEDS: DIABETA PO SCH ×2 (09:01→20:40)
[2019-03-01] MEDS: NORVASC TAB 5 MG PO SCH (09:01)
[2019-03-01] MEDS: NS 1/2 1000 ML IV 1,000 ML IV SCH (09:02)
[2019-03-01] MEDS: COMBIGAN EYE DROPS EACHEYE SCH ×2 (09:03→20:40)
--- NOTE | 2019-03-01 13:58 | PCM.PROG ---
Progress Note - Progress Note for Day of Date of Exam: 03/01/19 - Subjective Subjective: 63 BF ADMITTED ON 02/26 WITH RIGHT SIDE WEAKNESS TO UPPER EXTREMITY AND CO RIGHT SIDED FACIAL NUMBNESS. PT HAD CT HEAD ON ADMISSION WITHOUT ACUTE FINDINGS. PT HAD PT/OT EVALUATION. 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 PT IS CURRENTLY ON ASPIRIN, STATIN, PLAVIX, BP CONTROL, PT'S BP ELEVATED THIS AM 190'S SYSTOLIC, NORVASC DAILY ADDED. DISCUSSED OPTIONS FOR REHAB THERAPY. - Past Medical Family Social History Past Med/Fam/Surg Hx: No changes since H&P Allergies: Allergies No Known Drug Allergies Allergy (Verified 02/26/19 09:40) - Review of Systems ROS: No change since H&P - Vital Signs and I&O's Vital Signs: Temperature 97.6 F Pulse Rate [Apical] 68 Pulse Rate 63 Respiratory Rate 20 Blood Pressure [Right Arm] 124/75 Blood Pressure [Left Arm] 209/96 Blood Pressure 216/99 O2 Sat by Pulse Oximetry 100 Intake and Output: Intake & Output 02/27/19 02/28/19 03/01/19 03/02/19 11:59 11:59 11:59 11:59 Intake Total 1081 / 1081 1130 / 1130 1913 Balance 1081 / 1081 1130 / 1130 1913 - Physical Exam Oriented: Normal Eyes: Normal Ear: Normal Nose: Normal Throat: Normal Respiratory: Diminished Cardiovascular: Normal Auscultation: Bowel Sounds: Normal Tenderness: Normal Skin: Normal Musculoskeletal: Right, Arm, Sensory Deficit Psychiatric: Anxiety Mood Description: Calm Affect: Anxious Speech Pattern: Clear, Appropriate - Laboratory and Diagnostics Result Diagrams: 03/01/19 04:30 03/01/19 04:30 Labs: Laboratory WBC 4.9 X10^3/uL (3.6-10.0) 03/01/19 04:30 RBC 5.22 X10^6/uL (3.5-5.4) 03/01/19 04:30 Hgb 14.0 g/dL (12.0-16.0) 03/01/19 04:30 Hct 42.6 % (36.0-47.0) 03/01/19 04:30 MCV 81.5 fL (80.0-100.0) 03/01/19 04:30 MCH 26.9 pg (27.0-34.0) L 03/01/19 04:30 MCHC 32.9 g/dL (33.0-35.0) L 03/01/19 04:30 RDW 14.6 % (11.6-16.5) 03/01/19 04:30 Plt Count 331 X10^3/uL (150.0-450.0) 03/01/19 04:30 MPV 8.1 fL (7.4-11.0) 03/01/19 04:30 Neut % (Auto) 48.9 % (42.0-75.0) 03/01/19 04:30 Lymph % (Auto) 41.5 % (21.0-51.0) 03/01/19 04:30 [place] % (Auto) 6.5 % (0.0-13.0) 03/01/19 04:30 Eos % (Auto) 2.8 % (0.9-2.9) 03/01/19 04:30 Baso % (Auto) 0.3 % (0.2-1.0) 03/01/19 04:30 Neut # (Auto) 2.4 x10^3/uL (2.2-4.8) 03/01/19 04:30 Lymph # (Auto) 2.0 X10^3/uL (1.3-2.9) 03/01/19 04:30 [place] # (Auto) 0.3 x10^3/uL (0.3-0.8) 03/01/19 04:30 Eos # (Auto) 0.1 x10^3/uL (0.0-0.2) 03/01/19 04:30 Baso # (Auto) 0.0 X10^3/uL (0.0-0.1) 03/01/19 04:30 Absolute Nucleated RBC 0.1 /100WBC 03/01/19 04:30 INR Target Range - 02/26/19 06:09 INR 0.92 (0.8-1.3) 02/26/19 06:09 APTT 27.0 SECONDS (22.9-36.5) 02/26/19 06:09 PTT Comment - 02/26/19 06:09 Fibrinogen 483 mg/dL (239-489) 02/26/19 06:09 Sodium 143 mmol/L (136-145) 03/01/19 04:30 Corrected Sodium 144 mmol/L (136-145) 03/01/19 04:30 Potassium 3.7 mmol/L (3.5-5.1) 03/01/19 04:30 Chloride 106 mmol/L (98-107) 03/01/19 04:30 Carbon Dioxide 27.8 mmol/L (21-32) 03/01/19 04:30 BUN 10 mg/dL (7-18) 03/01/19 04:30 Creatinine 0.83 mg/dL (0.55-1.02) 03/01/19 04:30 Est GFR (MDRD) Af Amer > 60 (>60) 03/01/19 04:30 Est GFR (MDRD) Non-Af > 60 (>60) 03/01/19 04:30 Glucose 138 mg/dL (65-99) H 03/01/19 04:30 POC Glucose (mg/dL) 230 mg/dL (65-99) H 03/01/19 11:03 Hemoglobin A1c 9.4 % 02/28/19 04:46 Calcium 9.3 mg/dL (8.5-10.1) 03/01/19 04:30 Corrected Calcium 10.0 mg/dL (8.5-10.1) 03/01/19 04:30 Magnesium 1.9 mg/dL (1.7-2.9) 03/01/19 04:30 Total Bilirubin 0.40 mg/dL (0.2-1.0) 03/01/19 04:30 AST 15 Units/L (15-37) 03/01/19 04:30 ALT 15 Units/L (12-78) 03/01/19 04:30 Alkaline Phosphatase 73 Units/L (46-116) 03/01/19 04:30 Creatine Kinase 83 Units/L (26-192) 02/26/19 06:09 CK-MB (CK-2) 1.2 ng/mL (0-4.0) 02/26/19 06:09 CK/CKMB % Calc 1.5 % (<4) 02/26/19 06:09 Troponin I 0.02 ng/mL (0-1.5) 02/26/19 06:09 Total Protein 7.7 g/dL (6.4-8.2) 03/01/19 04:30 Albumin 3.1 g/dL (3.4-5.0) L 03/01/19 04:30 Globulin 4.6 g/dL (2.5-4.5) H 03/01/19 04:30 Albumin/Globulin Ratio 0.7 Ratio (1.1-2.1) L 03/01/19 04:30 Triglycerides 81 mg/dL (0-150) 02/26/19 06:09 Cholesterol 230 mg/dL (0-200) H 02/26/19 06:09 LDL Cholesterol, Calc 149 mg/dL (0-100) H 02/26/19 06:09 HDL Cholesterol 65 mg/dL (40-60) H 02/26/19 06:09 Cholesterol/HDL Ratio 3.5 (0.0-5.0) 02/26/19 06:09 Specimen Type Clean catch urine 02/26/19 06:45 Urine Color Yellow (YELLOW) 02/26/19 06:45 Urine Appearance Cloudy (CLEAR) 02/26/19 06:45 Urine pH 7.0 (5.0 - 8.0) 02/26/19 06:45 Ur Specific [place] 1.010 (1.000-1.030) 02/26/19 06:45 Urine Protein 1+ (NEGATIVE) 02/26/19 06:45 Urine Glucose (UA) 3+ (NEGATIVE) 02/26/19 06:45 Urine Ketones 1+ (NEGATIVE) 02/26/19 06:45 Urine Occult Blood 1+ (NEGATIVE) 02/26/19 06:45 Urine Nitrite Negative (NEGATIVE) 02/26/19 06:45 Urine Bilirubin Negative (NEGATIVE) 02/26/19 06:45 Urine Urobilinogen Normal (NORMAL) 02/26/19 06:45 Ur Leukocyte Esterase 2+ (NEGATIVE) 02/26/19 06:45 Urine RBC 0-2 /HPF (NONE SEEN) 02/26/19 06:45 Urine WBC 0-2 /HPF (NONE SEEN) 02/26/19 06:45 Ur Squamous Epith Cells Moderate /HPF (NEGATIVE) 02/26/19 06:45 Amorphous Sediment 3+ /HPF (NEGATIVE) 02/26/19 06:45 Urine Bacteria Negative /HPF (NEGATIVE) 02/26/19 06:45 Ur Culture Indicated? No/not indicated 02/26/19 06:45 - Plan (1) Paresthesia of right upper and lower extremity Status: Acute Plan: MRI/MRA BRAIN REVEALED ACUTE CVA, CONTINUE BP AND LIPID CONTROL. BS CONTROL, PHYSICAL THERAPY. CTA CAROTIDS OBTAINED, BP CONTROL. LIPID AND BS CONTROL. MRI C SPINE WITH DDD, PAIN CONTROL (2) Cervical spine degeneration Status: Acute (3) Accelerated hypertension Status: Acute (4) Diabetes mellitus Status: Acute Qualifiers: Diabetes mellitus type: type 2
[2019-03-01] MEDS: CRESTOR TAB 10 MG PO SCH (20:40)
[2019-03-01] MEDS: SNACK - Diabetic Appropriate PO SCH (20:40)
[2019-03-02 05:48] LABS: BASOPHILS % (AUTO) 0.5 % (0.2-1.0); EOSINOPHILS # (AUTO) 0.1 x10^3/uL (0.0-0.2); EOSINOPHILS % (AUTO) 2.9 % (0.9-2.9); HEMATOCRIT 43.1 % (36.0-47.0); HEMOGLOBIN 14.2 g/dL (12.0-16.0); LYMPHOCYTES % (AUTO) 42.8 % (21.0-51.0); MEAN CORPUSCULAR HEMOGLOBIN 26.9 pg (27.0-34.0); MEAN CORPUSCULAR VOLUME 81.6 fL (80.0-100.0); MEAN PLATELET VOLUME 8.1 fL (7.4-11.0); MONOCYTES # (AUTO) 0.3 x10^3/uL (0.3-0.8); MONOCYTES % (AUTO) 5.4 % (0.0-13.0); NEUTROPHILS # (AUTO) 2.2 x10^3/uL (2.2-4.8); NEUTROPHILS % (AUTO) 48.4 % (42.0-75.0); PLATELET COUNT 329 X10^3/uL (150.0-450.0); RED BLOOD COUNT 5.28 X10^6/uL (3.5-5.4); RED CELL DISTRIBUTION WIDTH 14.8 % (11.6-16.5); WHITE BLOOD COUNT 4.6 X10^3/uL (3.6-10.0)
[2019-03-02] MEDS: HumuLIN R SC SCH ×2 (06:05→12:42)
[2019-03-02 06:26] LABS: ALANINE AMINOTRANSFERASE 15 Units/L (12-78); ALKALINE PHOSPHATASE 73 Units/L (46-116); ASPARTATE AMINO TRANSFERASE 12 Units/L (15-37); BLOOD UREA NITROGEN 7 mg/dL (7-18); CALCIUM 9.1 mg/dL (8.5-10.1); CARBON DIOXIDE 26.8 mmol/L (21-32); CHLORIDE 107 mmol/L (98-107); COR CA(FOR HYPOALB) 9.9 mg/dL (8.5-10.1); COR NA(FOR HYPERGLY) 143 mmol/L (136-145); CREATININE 0.81 mg/dL (0.55-1.02); SODIUM 142 mmol/L (136-145); TOTAL PROTEIN 7.6 g/dL (6.4-8.2); eGFR NON BLACK RACES > 60 (>60)
[2019-03-02] MEDS: K-DUR TAB 20 MEQ PO PRN (08:48)
[2019-03-02] MEDS: ASPIRIN 81 MG CHEWTAB PO SCH (08:49)
[2019-03-02] MEDS: NORVASC TAB 5 MG PO SCH (08:49)
[2019-03-02] MEDS: PLAVIX PO SCH (08:49)
[2019-03-02] MEDS: DIABETA PO SCH (08:49)
[2019-03-02] MEDS: ZESTRIL TAB 40 MG PO SCH (08:49)
[2019-03-02] MEDS: COMBIGAN EYE DROPS EACHEYE SCH (08:51)
[2019-03-02 15:14] VITALS: BP 178/86
== END 2019-03-02 15:35 | disposition home or self-care (01) | DRG 66 ==
LOC: MED/SURG 05:55 → ER 05:55 → MED/SURG 09:05
PROVIDERS: ADMIT Internal Medicine; ATTEND Internal Medicine
DX: Z79.01 Long term (current) use of anticoagulants; R20.2 Paresthesia of skin; R41.82 Altered mental status, unspecified; R26.89 Other abnormalities of gait and mobility; M50.30 Other cervical disc degeneration, unspecified cervical region; E11.65 Type 2 diabetes mellitus with hyperglycemia; I63.89 Other cerebral infarction; R53.1 Weakness; I11.9 Hypertensive heart disease without heart failure; K21.9 Gastro-esophageal reflux disease without esophagitis
CPT/HCPCS: 36415; 70450; 70544; 70551; 71010; 71045; 72141; 80053; 80061; 81001; 82550; 82553; 83036; 83735; 84132; 84484; 85025; 85384; 85610; 85730; 93005; 93880; 94760; 96365; 97110; 97112; 97116; 97162; 97166; 97530; 97535; 99218; 99284; A4222; G0378; J1815; J3475